=== PATIENT | female | born 1975 | race Caucasian/White ===

== ENCOUNTER 2016-07-31 10:56 | Outpatient (CLI) | payer MEDICARE ==
[~2016-07-31] VITALS: Ht 162.6 cm; Wt 75.9 kg
[2016-07-31] MEDS ORDERED: PHENERGAN25 M1 PO (12:22)
[2016-07-31] MEDS ORDERED: ZANAFLEX4 MG PO (12:22)
[2016-07-31] MEDS ORDERED: ESTRADERM 0.10.1 MG TD (12:23)
[2016-07-31] MEDS ORDERED: GABAPENTIN100 MG PO (12:24)
[2016-07-31] MEDS ORDERED: OMEPRAZOLE20 M1 PO (12:24)
[2016-07-31 12:38] LABS: BASOPHILS 0.3 % (0.0-2.0); EOSINOPHILS 3.8 % (0-7); HEMATOCRIT 41.2 % (36.0-48.0); LYMPHOCYTES 41.7 % (15-50); MCH 29.6 pg (26.0-34.0); MCV 87.1 fL (80.0-100.0); MEAN PLATELET VOLUME 12.2 fL (7.4-10.4); MONOCYTES 5.6 % (2-11); NEUTROPHILS 48.6 % (40-80); PLATELET COUNT 104 10x3/uL (130-400); RBC 4.73 10x6/uL (4.00-5.40); WBC 3.7 10x3/uL (4.8-10.8)
[2016-07-31 12:40] LABS: APTT 27.8 SECONDS (22.8-39.4); INR 0.98 (0.85-1.17); PROTIME 12.8 SECONDS (11.6-15.0)
[2016-07-31 12:45] LABS: CALC OSMOLALITY 280 mosm/kg (275-300); CALCIUM 8.7 mg/dL (8.5-10.1); CARBON DIOXIDE 28.5 mmol/L (21.0-32.0); CHLORIDE - SERUM 105 mmol/L (98-107); CREATININE - SERUM 0.8 mg/dL (0.6-1.3); GLUCOSE 83 mg/dL (74-106); POTASSIUM - SERUM 4.2 mmol/L (3.5-5.1); SODIUM 141 mmol/L (136-145); UREA NITROGEN 14 mg/dL (7-18); eGFR NON AFRICAN AMERICAN 83 mL/min (90-120)
[2016-07-31 12:47] VITALS: BP 132/92; Ht 162.6 cm; Wt 75.9 kg
--- NOTE | 2016-07-31 18:03 | NUR ---
1510--PT COMPLAINS OF NAUSEA, ORDER RECIEVED AND 4MG ZOFRAN GIVEN SIVP. MARBIN JAMES 1600--IV DC'D, PT UP TO DRESS AT THIS TIME. MARBIN JAMES [id number]--DISCHARGE INSTRUCTIONS GIVEN, PT VERBALIZES UNDERSTANDING. PT OFF UNIT VIA WC. MARBIN JAMES
--- NOTE | 2016-07-31 18:04 | NUR ---
1415--ALL VITAL SIGNS CHARTED ON POST PROCEDURE VITAL SIGN SHEET IN CHART. MARBIN RN
== END 2016-07-31 16:25 | disposition home or self-care (01) ==
LOC: D.OPS 10:56 → D.US 10:56 → D.CT 13:00 → D.OPS 16:25
PROVIDERS: Radiology Diagnostic Radiology
DX: D69.6 Thrombocytopenia, unspecified (principal)

== ENCOUNTER 2016-09-28 11:05 | Emergency (ER) | payer MEDICARE ==
[2016-07-31 12:47] VITALS: BMI 28.7
[~2016-09-28 11:05] MED LIST: ESTRADERM 0.10.1 MG TD; GABAPENTIN100 MG PO; OMEPRAZOLE20 M1 PO; PHENERGAN25 M1 PO; ZANAFLEX4 MG PO
[2016-09-28 11:32] LABS: APPEARANCE HAZY (CLEAR); BILIRUBIN NEGATIVE (NEGATIVE); COLOR YELLOW (YELLOW); GLUCOSE NEGATIVE (NEGATIVE); KETONE NEGATIVE (NEGATIVE); LEUKOCYTE ESTERASE NEGATIVE (NEGATIVE); NITRITE NEGATIVE (NEGATIVE); PROTEIN NEGATIVE (NEGATIVE); UROBILINOGEN NORMAL (NORMAL)
[2016-09-28 11:33] LABS: BACTERIA MODERATE /hpf (NONE SEEN); MUCUS >1+ /lpf (NONE SEEN); RED CELLS - URINE >50 /hpf (0-5); WHITE CELLS - URINE 0-5 /hpf (0-5)
[2016-09-28 11:36] LABS: BASOPHILS 0.2 % (0-2); EOSINOPHILS 3.3 % (0-7); HEMATOCRIT 43.5 % (36.0-48.0); HEMOGLOBIN 14.8 g/dL (12-16); IMMATURE GRANULOCYTES 0.2 % (0-5); LYMPHOCYTES 22.6 % (15-50); MCH 29.8 pg (26.0-34.0); MCV 87.5 fL (80.0-100.0); MEAN PLATELET VOLUME 12.2 fL (7.4-10.4); MONOCYTES 4.5 % (2-11); NEUTROPHILS 69.2 % (40-80); PLATELET COUNT 111 10x3/uL (130-400); RBC 4.97 10x6/uL (4.00-5.40); WBC 6.6 10x3/uL (4.8-10.8)
[2016-09-28 11:54] LABS: ALBUMIN 3.7 g/dL (3.4-5.0); ANION GAP 11.1 mmol/L (8-16); BILIRUBIN - TOTAL 0.4 mg/dL (0.2-1.3); CALCIUM 8.9 mg/dL (8.5-10.1); CARBON DIOXIDE 28.7 mmol/L (21.0-32.0); CREATININE - SERUM 1.1 mg/dL (0.6-1.3); POTASSIUM - SERUM 3.8 mmol/L (3.5-5.1); PROTEIN - SERUM 7.3 g/dL (6.4-8.2)
[2016-09-28 11:55] LABS: UDS - AMPHET NEGATIVE QUAL (NEGATIVE); UDS - BARB NEGATIVE QUAL (NEGATIVE); UDS - BENZO NEGATIVE QUAL (NEGATIVE); UDS - COCAINE NEGATIVE QUAL (NEGATIVE); UDS - METH NEGATIVE QUAL (NEGATIVE); UDS - OPIATE NEGATIVE QUAL (NEGATIVE); UDS - PCP NEGATIVE QUAL (NEGATIVE); UDS - THC POSITIVE QUAL (NEGATIVE)
== END 2016-09-28 16:59 | disposition home or self-care (01) ==
LOC: D.ER 11:05
PROVIDERS: Emergency Medicine
DX: N20.1 Calculus of ureter (principal); M79.7 Fibromyalgia

== ENCOUNTER 2017-03-01 22:18 | Emergency (ER) | payer MEDICARE ==
[2016-07-31 12:47] VITALS: BMI 28.7
[2017-03-01 22:36] LABS: APPEARANCE HAZY (CLEAR); BILIRUBIN NEGATIVE (NEGATIVE); COLOR DK YELLOW (YELLOW); GLUCOSE NEGATIVE (NEGATIVE); KETONE LARGE mg/dL (NEGATIVE); NITRITE NEGATIVE (NEGATIVE); PROTEIN TRACE mg/dL (NEGATIVE); UROBILINOGEN NORMAL (NORMAL)
[2017-03-01 22:44] LABS: RED CELLS - URINE 0-5 /hpf (0-5); WHITE CELLS - URINE 0-5 /hpf (0-5)
[2017-03-01 22:44] LABS: BASOPHILS 0.2 % (0-2); EOSINOPHILS 1.8 % (0-7); HEMATOCRIT 43.3 % (36.0-48.0); LYMPHOCYTES 30.6 % (15-50); MCH 30.1 pg (26.0-34.0); MCHC 34.6 g/dL (31.0-37.0); MCV 86.8 fL (80.0-100.0); MEAN PLATELET VOLUME 12.2 fL (7.4-10.4); MONOCYTES 6.2 % (2-11); NEUTROPHILS 61.2 % (40-80); PLATELET COUNT 129 10x3/uL (130-400); RBC 4.99 10x6/uL (4.00-5.40); RDW 11.8 % (11.5-14.5)
[2017-03-01 22:45] LABS: BACTERIA FEW /hpf (NONE SEEN); MUCUS <1+ /lpf (NONE SEEN)
[2017-03-01 22:59] LABS: ALBUMIN 4.2 g/dL (3.4-5.0); ALKALINE PHOSPHATASE 70 U/L (46-116); ALT (SGPT) 20 U/L (10-68); BILIRUBIN - TOTAL 0.49 mg/dL (0.2-1.3); CALC OSMOLALITY 282 mosm/kg (275-300); CALCIUM 9.6 mg/dL (8.5-10.1); CARBON DIOXIDE 26.7 mmol/L (21.0-32.0); CHLORIDE - SERUM 103 mmol/L (98-107); GLUCOSE 110 mg/dL (74-106); POTASSIUM - SERUM 3.2 mmol/L (3.5-5.1); PROTEIN - SERUM 8.1 g/dL (6.4-8.2); SODIUM 141 mmol/L (136-145); UREA NITROGEN 15 mg/dL (7-18); eGFR NON AFRICAN AMERICAN 64 mL/min (90-120)
[2017-03-01 23:07] LABS: TROPONIN-I < 0.017 ng/mL (0.000-0.060)
== END 2017-03-01 23:18 | disposition home or self-care (01) ==
LOC: D.ER 22:18
PROVIDERS: Family Medicine
DX: B02.9 Zoster without complications (principal); F17.200 Nicotine dependence, unspecified, uncomplicated

== ENCOUNTER 2020-07-27 15:19 | Emergency (ER) | payer MEDICARE ==
[~2020-07-27] VITALS: Ht 162.6 cm; Wt 83.2 kg
[2020-07-27 15:22] VITALS: Ht 162.6 cm; Wt 83.2 kg
[2020-07-27] MEDS ORDERED: ZANAFLEX4 MG PO (16:04)
[2020-07-27 16:48] VITALS: BP 138/78
== END 2020-07-27 16:49 | disposition home or self-care (01) ==
LOC: D.ER 15:19
DX: S60.221A Contusion of right hand, initial encounter (principal); V89.2XXA Person injured in unspecified motor-vehicle accident, traffic, initial encounter; Y93.9 Activity, unspecified; Y92.9 Unspecified place or not applicable; M25.511 Pain in right shoulder; G62.9 Polyneuropathy, unspecified; M54.2 Cervicalgia